=== PATIENT | male | born 1950 | race Caucasian/White ===

== ENCOUNTER 2019-09-05 23:07 | Inpatient (IN) | payer MEDICARE, MEDICAID ==
[~2019-09-05] VITALS: Ht 177.8 cm; Wt 71.7 kg
[~2019-09-05 23:07] MED LIST: METF-414 PO; PROT40 PO
[2019-09-05] MEDS ORDERED: MORPHINE SULFATE 4 MG/ML CPJ (NOT FOR IM USE) IV STA (23:56)
[2019-09-05] MEDS ORDERED: SODIUM CHLORIDE 0.9% 1,000 ML IV ONE (23:56)
[2019-09-05] MEDS ORDERED: IPRATROPIUM BROMIDE (0.02%) 0.5MG/2.5ML NEB HHN STA (23:56)
[2019-09-05] MEDS ORDERED: ALBUTEROL (0.083%) 2.5MG/3ML NEB HHN STA (23:56)
[2019-09-05] MEDS ORDERED: ONDANSETRON HCL 4MG/2ML INJ IV STA (23:56)
[2019-09-06 00:31] LABS: CHLORIDE 102 mEq/L (98-107); INR 1.1; PROTHROMBIN TIME 11.8 sec (9.6-11.0)
[2019-09-06 00:33] LABS: BASOPHILS % 0.2 % (0.0-2.0); HEMATOCRIT. 33.7 % (42.0-52.0); HEMOGLOBIN. 11.1 g/dL (14.0-18.0); LYMPHOCYTES % 10.4 % (20.0-50.0); MEAN CORPUSCULAR HEMOGLOBIN 28.5 pg (28.0-32.0); MEAN CORPUSCULAR VOLUME 86.4 fL (80.0-94.0); MEAN PLATELET VOLUME 7.9 fl (7.4-10.4); MONOCYTES % 3.8 % (2.0-8.0); NEUTROPHILS % 85.6 % (40.0-76.0); PLATELET 76 x1000/uL (130-400); RED CELL DISTRIBUTION WIDTH 19.9 % (11.6-14.6)
[2019-09-06 00:36] LABS: ETHANOL BLOOD < 10 mg/dL
[2019-09-06 01:45] LABS: BG BASE EXCESS -4.4 mmol/L (-2.0-2.0); BG CARBOXYHEMOGLOBIN 0.3 % (0.5-1.5); BG FRACTION INSPIRED OXYGEN 21; BG METHEMOGLOBIN 0.2 % (0.0-1.5); BG OXYHEMOGLOBIN 93.5 % (94.0-97.0); BG PCO2 39.8 mmHg (35.0-45.0); BG PH 7.341 (7.350-7.450); BG PO2 78.4 mmHg (75.0-100.0); BG SAMPLE SITE RIGHT RADIAL; BG TOTAL HEMOGLOBIN 11.3 g/dL (12.0-18.0); BG VENT MODE ROOM AIR
[2019-09-06] MEDS ORDERED: SODIUM CHLORIDE 0.9% 1,000 ML IV ONE (03:10)
[2019-09-06 03:31] LABS: CLARITY URINE CLOUDY (CLEAR); COLOR URINE YELLOW (YELLOW); KETONES URINE NEGATIVE (NEGATIVE); LEUKOCYTE ESTERASE URINE NEGATIVE (NEGATIVE); NITRITE URINE NEGATIVE (NEGATIVE); OCCULT BLOOD URINE NEGATIVE (NEGATIVE); PROTEIN URINE 2+ (NEGATIVE); SPECIFIC GRAVITY URINE 1.014 (1.005-1.030)
[2019-09-06 03:32] LABS: BASOPHILS % 0.7 % (0.0-2.0); HEMATOCRIT. 32.5 % (42.0-52.0); HEMOGLOBIN. 10.6 g/dL (14.0-18.0); LYMPHOCYTES % 8.6 % (20.0-50.0); MEAN CORPUSCULAR HEMOGLOBIN 28.2 pg (28.0-32.0); MEAN CORPUSCULAR VOLUME 86.7 fL (80.0-94.0); MEAN PLATELET VOLUME 7.9 fl (7.4-10.4); MONOCYTES % 3.4 % (2.0-8.0); NEUTROPHILS % 87.3 % (40.0-76.0); PLATELET 67 x1000/uL (130-400); RED BLOOD CELL COUNT 3.75 mill/uL (4.7-6.1); RED CELL DISTRIBUTION WIDTH 19.9 % (11.6-14.6)
[2019-09-06 03:46] LABS: METHADONE URINE SCREEN NEGATIVE (NEGATIVE); OPIATES URINE SCREEN PRESUMTIVE POSITIVE (NEGATIVE); PHENCYCLIDINE URINE SCREEN NEGATIVE (NEGATIVE)
[2019-09-06 03:48] LABS: *AMPHETAMINES SCREEN URINE NEGATIVE (NEGATIVE); *BARBITURATES SCREEN URINE NEGATIVE (NEGATIVE); *BENZODIAZEPINES SCREEN URINE NEGATIVE (NEGATIVE); *COCAINE SCREEN URINE NEGATIVE (NEGATIVE); CANNABINOID URINE SCREEN NEGATIVE (NEGATIVE)
[2019-09-06 04:35] LABS: BASOPHILS % 0.1 % (0.0-2.0); HEMATOCRIT. 30.6 % (42.0-52.0); HEMOGLOBIN. 9.9 g/dL (14.0-18.0); LYMPHOCYTES % 9.2 % (20.0-50.0); MEAN CORPUSCULAR HEMOGLOBIN 28.3 pg (28.0-32.0); MEAN PLATELET VOLUME 8.1 fl (7.4-10.4); MONOCYTES % 3.7 % (2.0-8.0); PLATELET 65 x1000/uL (130-400); RED BLOOD CELL COUNT 3.52 mill/uL (4.7-6.1); RED CELL DISTRIBUTION WIDTH 19.8 % (11.6-14.6)
[2019-09-06] MEDS ORDERED: ONDANSETRON HCL 4MG/2ML INJ IV PRN (10:00)
[2019-09-06] MEDS ORDERED: SODIUM CHLORIDE 0.9% 1,000 ML IV SCH (10:00)
[2019-09-06] MEDS ORDERED: ACETAMINOPHEN 325MG TABLET PO PRN (10:00)
[2019-09-06] MEDS ORDERED: DEXTROSE 50% WATER 50ML SYRINGE IV PRN (10:00)
[2019-09-06] MEDS ORDERED: IPRATROPIUM BROMIDE (0.02%) 0.5MG/2.5ML NEB HHN PRN (10:00)
[2019-09-06] MEDS ORDERED: CEFEPIME 1,000 MG in DEXTROSE 5% WATER 50 ML IV SCH ×2 (10:00→10:30)
[2019-09-06] MEDS ORDERED: SODIUM BICARBONATE 4% (2.4MEQ) 5ML VIAL IV ONE (11:12)
[2019-09-06] MEDS: INSULIN LISPRO 100 UNITS/ML SUBCUT SCH ×3 (13:20→21:14)
[2019-09-06] MEDS: BLOOD SUGAR DIAGNOSTIC STRIP TEST SCH ×3 (14:00→21:14)
[2019-09-06] MEDS: DEXT 5%/0.45% NACL 1000ML 1,000 ML IV SCH (16:45)
[2019-09-06 17:57] LABS: HEPATITIS B SURFACE ANTIGEN NEGATIVE
[2019-09-06 18:27] LABS: HEPATITIS A AB IGM NEGATIVE (NEGATIVE)
[2019-09-06] MEDS ORDERED: ALBUMIN HUMAN 12.5GM/50ML (25%) IV NR (19:15)
[2019-09-06 21:14] VITALS: BP 95/52
[2019-09-07] VITALS (11 sets, daily range): BP systolic 82–112; BP diastolic 48–69
[2019-09-07] MEDS: PROPRANOLOL HCL 10MG TABLET PO SCH ×2 (01:00→20:55)
[2019-09-07] MEDS ORDERED: SODIUM POLYSTYRENE SULFONATE 15 G/60 ML BOT PO NR (02:00)
[2019-09-07] MEDS: DEXT 5%/0.45% NACL 1000ML 1,000 ML IV SCH (02:17)
[2019-09-07] MEDS: ALBUMIN HUMAN 12.5GM/50ML (25%) IV SCH ×2 (02:28→09:36)
[2019-09-07] MEDS ORDERED: LACTULOSE 20G/30ML UDC PO SCH (06:00)
[2019-09-07] MEDS: BLOOD SUGAR DIAGNOSTIC STRIP TEST SCH ×3 (06:53→21:15)
[2019-09-07] MEDS: INSULIN LISPRO 100 UNITS/ML SUBCUT SCH ×3 (06:56→21:00)
[2019-09-07 07:38] LABS: BASOPHILS % 0.2 % (0.0-2.0); HEMATOCRIT. 28.4 % (42.0-52.0); HEMOGLOBIN. 9.2 g/dL (14.0-18.0); LYMPHOCYTES % 8.6 % (20.0-50.0); MEAN CORPUSCULAR HEMOGLOBIN 28.5 pg (28.0-32.0); MEAN PLATELET VOLUME 8.9 fl (7.4-10.4); MONOCYTES % 1.7 % (2.0-8.0); NEUTROPHILS % 89.5 % (40.0-76.0); RED BLOOD CELL COUNT 3.23 mill/uL (4.7-6.1); RED CELL DISTRIBUTION WIDTH 19.8 % (11.6-14.6)
[2019-09-07 07:50] LABS: PLATELET 49 x1000/uL (130-400)
[2019-09-07] MEDS ORDERED: MIDODRINE HCL 5MG TABLET PO SCH (09:00)
[2019-09-07] MEDS: PANTOPRAZOLE SODIUM 40 MG/VIAL IV SCH ×2 (09:34→21:17)
[2019-09-07] MEDS ORDERED: CEFEPIME 500 MG in DEXTROSE 5% WATER 50 ML IV SCH (12:00)
[2019-09-07] MEDS: LACTULOSE 20G/30ML UDC PO SCH (13:00)
[2019-09-07 13:13] LABS: PLATELET ESTIMATE MARKEDLY DECREASED
[2019-09-07] MEDS: MIDODRINE HCL 5MG TABLET PO SCH ×2 (15:27→17:00)
[2019-09-07] MEDS ORDERED: IPRATROPIUM/ALBUTEROL 0.5-3(2.5)MG/3ML NEB HHN PRN (15:45)
[2019-09-07] MEDS ORDERED: ALBUMIN HUMAN 25GM/100ML (25%) IV NR ×2 (16:30→22:30)
[2019-09-07 16:53] LABS: BG BASE EXCESS -10.7 mmol/L (-2.0-2.0); BG CARBOXYHEMOGLOBIN 0.3 % (0.5-1.5); BG DEOXYHEMOGLOBIN 10.6 % (0.0-5.0); BG FRACTION INSPIRED OXYGEN 40; BG HCO3 ACT 15.4 mmol/L (22.0-26.0); BG METHEMOGLOBIN 0.2 % (0.0-1.5); BG OXYGEN SATURATION 89.3 % (92.0-98.5); BG OXYHEMOGLOBIN 88.9 % (94.0-97.0); BG PCO2 34.8 mmHg (35.0-45.0); BG PH 7.264 (7.350-7.450); BG PO2 67.9 mmHg (75.0-100.0); BG SAMPLE SITE RIGHT RADIAL; BG VENT MODE NASAL CANNULA
[2019-09-07] MEDS: SODIUM BICARBONATE 8.4% 1 MEQ/ML 50ML SYR IV NR ×2 (18:46→18:52)
[2019-09-07] MEDS ORDERED: MORPHINE SULFATE 2 MG/ML CPJ (NOT FOR IM USE) IV PRN (20:15)
[2019-09-07] MEDS: IPRATROPIUM/ALBUTEROL 0.5-3(2.5)MG/3ML NEB HHN SCH ×2 (20:16→21:58)
[2019-09-08] VITALS (54 sets, daily range): BP systolic 88–121; BP diastolic 42–79
[2019-09-08] MEDS: IPRATROPIUM/ALBUTEROL 0.5-3(2.5)MG/3ML NEB HHN SCH ×6 (00:03→19:39)
[2019-09-08] MEDS: ALBUMIN HUMAN 25GM/100ML (25%) IV SCH ×3 (05:03→21:09)
[2019-09-08] MEDS: BLOOD SUGAR DIAGNOSTIC STRIP TEST SCH ×3 (06:14→18:06)
[2019-09-08 06:43] LABS: HEMATOCRIT. 26.8 % (42.0-52.0); HEMOGLOBIN. 8.7 g/dL (14.0-18.0); MEAN CORPUSCULAR HEMOGLOBIN 28.3 pg (28.0-32.0); MEAN PLATELET VOLUME 8.5 fl (7.4-10.4); RED BLOOD CELL COUNT 3.08 mill/uL (4.7-6.1); RED CELL DISTRIBUTION WIDTH 20.1 % (11.6-14.6)
[2019-09-08] MEDS: INSULIN LISPRO 100 UNITS/ML SUBCUT SCH ×2 (07:20→18:07)
[2019-09-08 08:01] LABS: PHOSPHORUS 5.4 mg/dL (2.5-4.9)
[2019-09-08 08:09] LABS: PLATELET 28 x1000/uL (130-400)
[2019-09-08 08:11] LABS: BG BASE EXCESS -3.7 mmol/L (-2.0-2.0); BG BILEVEL POS AIRWAY PRESSURE 15/5; BG CARBOXYHEMOGLOBIN 0.3 % (0.5-1.5); BG DEOXYHEMOGLOBIN 5.5 % (0.0-5.0); BG FRACTION INSPIRED OXYGEN 40; BG HCO3 ACT 21.8 mmol/L (22.0-26.0); BG METHEMOGLOBIN 0.1 % (0.0-1.5); BG OXYGEN SATURATION 94.5 % (92.0-98.5); BG OXYHEMOGLOBIN 94.1 % (94.0-97.0); BG PH 7.343 (7.350-7.450); BG PO2 75.3 mmHg (75.0-100.0); BG SAMPLE SITE RIGHT RADIAL; BG TOTAL HEMOGLOBIN 9.2 g/dL (12.0-18.0); BG VENT MODE MASK - BIPAP; BG VENT RATE 14 set
[2019-09-08] MEDS: MIDODRINE HCL 5MG TABLET PO SCH ×3 (08:17→17:00)
[2019-09-08] MEDS: PANTOPRAZOLE SODIUM 40 MG/VIAL IV SCH ×2 (08:17→21:09)
[2019-09-08] MEDS: LACTULOSE 20G/30ML UDC PO SCH (08:35)
[2019-09-08] MEDS: PROPRANOLOL HCL 10MG TABLET PO SCH ×2 (09:00→20:19)
[2019-09-08] MEDS: CEFEPIME 1,000 MG in DEXTROSE 5% WATER 50 ML IV SCH (09:34)
[2019-09-08] MEDS ORDERED: FUROSEMIDE 40MG/4ML VIAL IVP ONE (12:00)
[2019-09-08] MEDS ORDERED: NOREPINEPHRINE 4MG/250ML PMX 250 ML IV ONE (12:00)
[2019-09-08] MEDS ORDERED: LORAZEPAM 2MG/ML CPJ IV PRN (12:15)
[2019-09-08] MEDS ORDERED: NOREPINEPHRINE 4MG/250ML PMX 250 ML IV PRN (12:30)
[2019-09-08] MEDS ORDERED: VECURONIUM BROMIDE 10 MG/VIAL IV ONE (12:35)
[2019-09-08] MEDS ORDERED: ETOMIDATE 2MG/ML 10ML VIAL IV ONE (12:35)
[2019-09-08] MEDS ORDERED: SODIUM CHLORIDE 0.9% 10ML VIAL ONE (12:35)
[2019-09-08] MEDS: NOREPINEPHRINE 4 MG in DEXTROSE 5% WATER 250 ML IV PRN (12:50)
[2019-09-08] MEDS: FENTANYL CITRATE/PF 500 MCG in SODIUM CHLORIDE 0.9% 40 ML IV PRN (12:50)
[2019-09-08] MEDS: PHENYLEPHRINE 40 MG in DEXT 5% WATER 246 ML IV PRN ×2 (13:45→20:00)
[2019-09-08 13:54] LABS: PLATELET ESTIMATE MARKEDLY DECREASED
[2019-09-08 14:01] LABS: BG BASE EXCESS -8.1 mmol/L (-2.0-2.0); BG CARBOXYHEMOGLOBIN 0.3 % (0.5-1.5); BG DEOXYHEMOGLOBIN 0.9 % (0.0-5.0); BG FRACTION INSPIRED OXYGEN 100; BG HCO3 ACT 20.2 mmol/L (22.0-26.0); BG METHEMOGLOBIN 0.3 % (0.0-1.5); BG OXYGEN SATURATION 99.1 % (92.0-98.5); BG OXYHEMOGLOBIN 98.5 % (94.0-97.0); BG PCO2 54.4 mmHg (35.0-45.0); BG PH 7.187 (7.350-7.450); BG PO2 241.6 mmHg (75.0-100.0); BG SAMPLE SITE RIGHT RADIAL; BG TIDAL VOLUME(mL) 450 mL; BG TOTAL HEMOGLOBIN 10.8 g/dL (12.0-18.0); BG VENT MODE VENT - A/C; BG VENT RATE 16 set
[2019-09-08] MEDS ORDERED: LIDOCAINE HCL 1% 20ML VIAL (Pyxis) INJ ONE (14:04)
[2019-09-08] MEDS ORDERED: KCL 20MEQ/100ML PREMIX 100 ML IV SCH (15:00)
[2019-09-09] VITALS (99 sets, daily range): BP systolic 83–125; BP diastolic 42–66
[2019-09-09] MEDS: IPRATROPIUM/ALBUTEROL 0.5-3(2.5)MG/3ML NEB HHN SCH ×6 (00:42→21:03)
[2019-09-09] MEDS: PHENYLEPHRINE 80 MG in DEXT 5% WATER 492 ML IV PRN ×2 (01:42→09:41)
[2019-09-09 05:36] LABS: CHLORIDE 110 mEq/L (98-107)
[2019-09-09] MEDS: NOREPINEPHRINE 4 MG in DEXTROSE 5% WATER 250 ML IV PRN (05:36)
[2019-09-09] MEDS: ALBUMIN HUMAN 25GM/100ML (25%) IV SCH ×2 (05:36→12:53)
[2019-09-09 05:55] LABS: PHOSPHORUS 5.7 mg/dL (2.5-4.9)
[2019-09-09] MEDS: BLOOD SUGAR DIAGNOSTIC STRIP TEST SCH ×5 (06:00→23:47)
[2019-09-09] MEDS: INSULIN LISPRO 100 UNITS/ML SUBCUT SCH ×5 (06:00→23:47)
[2019-09-09 07:56] LABS: BG BASE EXCESS -7.8 mmol/L (-2.0-2.0); BG CARBOXYHEMOGLOBIN 0.3 % (0.5-1.5); BG DEOXYHEMOGLOBIN 3.1 % (0.0-5.0); BG HCO3 ACT 19.7 mmol/L (22.0-26.0); BG METHEMOGLOBIN 0.3 % (0.0-1.5); BG OXYGEN SATURATION 96.9 % (92.0-98.5); BG OXYHEMOGLOBIN 96.3 % (94.0-97.0); BG PCO2 49.3 mmHg (35.0-45.0); BG PH 7.219 (7.350-7.450); BG PO2 99.9 mmHg (75.0-100.0); BG SAMPLE SITE RIGHT RADIAL; BG TIDAL VOLUME(mL) 450 mL; BG TOTAL HEMOGLOBIN 9.8 g/dL (12.0-18.0); BG VENT MODE VENT - A/C; BG VENT RATE 20 set
[2019-09-09] MEDS: PANTOPRAZOLE SODIUM 40 MG/VIAL IV SCH ×2 (08:48→21:22)
[2019-09-09] MEDS: FUROSEMIDE 100MG/10ML VIAL IV SCH (08:49)
[2019-09-09] MEDS: LACTULOSE 20G/30ML UDC PO SCH ×2 (08:49→17:18)
[2019-09-09] MEDS: PROPRANOLOL HCL 10MG TABLET PO SCH ×3 (08:49→20:31)
[2019-09-09] MEDS: MIDODRINE HCL 5MG TABLET PO SCH ×3 (08:50→17:17)
[2019-09-09] MEDS ORDERED: FUROSEMIDE 40MG/4ML VIAL IVP SCH (09:00)
[2019-09-09] MEDS: FENTANYL CITRATE/PF 500 MCG in SODIUM CHLORIDE 0.9% 40 ML IV PRN (09:00)
[2019-09-09] MEDS: CITRIC ACID/SODIUM CITRATE SOLN 15ML UDC PO SCH ×3 (09:18→17:18)
[2019-09-09 09:48] LABS: HEMATOCRIT. 25.6 % (42.0-52.0); HEMOGLOBIN. 8.4 g/dL (14.0-18.0); MEAN CORPUSCULAR HEMOGLOBIN 28.8 pg (28.0-32.0); MEAN CORPUSCULAR VOLUME 87.6 fL (80.0-94.0); MEAN PLATELET VOLUME 8.8 fl (7.4-10.4); RED BLOOD CELL COUNT 2.92 mill/uL (4.7-6.1)
[2019-09-09 09:51] LABS: PLATELET 18 x1000/uL (130-400)
[2019-09-09 10:32] LABS: PLATELET ESTIMATE MARKEDLY DECREASED
[2019-09-09] MEDS ORDERED: VASOPRESSIN 10 UNIT in SODIUM CHLORIDE 0.9% 99.5 ML IV PRN (11:00)
[2019-09-09] MEDS: CEFEPIME 1,000 MG in DEXTROSE 5% WATER 50 ML IV SCH (11:19)
[2019-09-09] MEDS ORDERED: NOREPINEPHRINE 32 MG in DEXT 5% WATER 468 ML IV PRN (12:00)
[2019-09-09] MEDS: METRONIDAZOLE 500 MG PREMIX 100 ML IV SCH ×3 (12:43→23:50)
[2019-09-09 13:30] LABS: BG BASE EXCESS -6.6 mmol/L (-2.0-2.0); BG CARBOXYHEMOGLOBIN 0.3 % (0.5-1.5); BG DEOXYHEMOGLOBIN 1.7 % (0.0-5.0); BG FRACTION INSPIRED OXYGEN 70; BG HCO3 ACT 19.5 mmol/L (22.0-26.0); BG METHEMOGLOBIN 0.4 % (0.0-1.5); BG OXYGEN SATURATION 98.3 % (92.0-98.5); BG OXYHEMOGLOBIN 97.6 % (94.0-97.0); BG PCO2 41.6 mmHg (35.0-45.0); BG PH 7.289 (7.350-7.450); BG PO2 135.4 mmHg (75.0-100.0); BG SAMPLE SITE RIGHT RADIAL; BG TIDAL VOLUME(mL) 450 mL; BG TOTAL HEMOGLOBIN 8.5 g/dL (12.0-18.0); BG VENT MODE VENT - A/C; BG VENT RATE 24 set
[2019-09-09 17:12] LABS: FIBRINOGEN 292 mg/dL (200-400); INR 1.4; PARTIAL THROMBOPLASTIN TIME 68.8 sec (23.4-31.0); PROTHROMBIN TIME 14.7 sec (9.6-11.0)
[2019-09-09 17:38] LABS: D-DIMER > 35.20 mg/L FEU (<0.50)
[2019-09-10] VITALS (57 sets, daily range): BP systolic 44–127; BP diastolic 21–91
[2019-09-10] MEDS: PHENYLEPHRINE 80 MG in DEXT 5% WATER 492 ML IV PRN ×2 (00:42→08:44)
[2019-09-10 05:07] LABS: CA 19-9 6 U/mL (0-35)
[2019-09-10] MEDS: INSULIN LISPRO 100 UNITS/ML SUBCUT SCH (05:23)
[2019-09-10] MEDS: BLOOD SUGAR DIAGNOSTIC STRIP TEST SCH (05:23)
[2019-09-10] MEDS: METRONIDAZOLE 500 MG PREMIX 100 ML IV SCH (05:35)
[2019-09-10 05:43] LABS: HEMATOCRIT. 26.2 % (42.0-52.0); HEMOGLOBIN. 8.6 g/dL (14.0-18.0); MEAN PLATELET VOLUME 9.7 fl (7.4-10.4); RED BLOOD CELL COUNT 2.97 mill/uL (4.7-6.1); RED CELL DISTRIBUTION WIDTH 20.6 % (11.6-14.6)
[2019-09-10] MEDS: FENTANYL CITRATE/PF 500 MCG in SODIUM CHLORIDE 0.9% 40 ML IV PRN (06:12)
[2019-09-10 06:27] LABS: PLATELET 10 x1000/uL (130-400)
[2019-09-10 07:05] LABS: PHOSPHORUS 4.1 mg/dL (2.5-4.9)
[2019-09-10 07:10] LABS: PLATELET ESTIMATE MARKEDLY DECREASED
[2019-09-10] MEDS: CEFEPIME 1,000 MG in DEXTROSE 5% WATER 50 ML IV SCH (08:21)
[2019-09-10] MEDS: CITRIC ACID/SODIUM CITRATE SOLN 15ML UDC PO SCH (08:21)
[2019-09-10] MEDS: LACTULOSE 20G/30ML UDC PO SCH (08:21)
[2019-09-10] MEDS: FUROSEMIDE 100MG/10ML VIAL IV SCH (08:23)
[2019-09-10] MEDS: PANTOPRAZOLE SODIUM 40 MG/VIAL IV SCH (08:23)
[2019-09-10] MEDS: MIDODRINE HCL 5MG TABLET PO SCH (08:23)
[2019-09-10] MEDS: PROPRANOLOL HCL 10MG TABLET PO SCH (08:23)
[2019-09-10 08:42] LABS: BG BASE EXCESS -7.3 mmol/L (-2.0-2.0); BG CARBOXYHEMOGLOBIN 0.2 % (0.5-1.5); BG DEOXYHEMOGLOBIN 3.2 % (0.0-5.0); BG FRACTION INSPIRED OXYGEN 50; BG HCO3 ACT 18.2 mmol/L (22.0-26.0); BG METHEMOGLOBIN 0.2 % (0.0-1.5); BG OXYGEN SATURATION 96.8 % (92.0-98.5); BG OXYHEMOGLOBIN 96.4 % (94.0-97.0); BG PO2 99.3 mmHg (75.0-100.0); BG SAMPLE SITE RIGHT RADIAL; BG TIDAL VOLUME(mL) 450 mL; BG TOTAL HEMOGLOBIN 11.7 g/dL (12.0-18.0); BG VENT MODE VENT - A/C; BG VENT RATE 26 set
[2019-09-10] MEDS: IPRATROPIUM/ALBUTEROL 0.5-3(2.5)MG/3ML NEB HHN SCH (09:27)
[2019-09-10] MEDS ORDERED: MORPHINE SULFATE 250 MG in DEXT 5% WATER 240 ML IV PRN (12:00)
== END 2019-09-10 15:00 | disposition expired | DRG 871 ==
LOC: ER 23:07 → 7WST 09-06 05:30 → ENRESERV 09-06 19:39 → 3WST 09-07 19:52 → MICUSO 09-08 12:10
PROVIDERS: ADMIT Internal Medicine; ATTEND Internal Medicine
PROC: 0W9G3ZZ Drainage of Peritoneal Cavity, Percutaneous Approach (ICD-10-PCS; 2019-09-06)
PROC: 5A1935Z Respiratory Ventilation, Less than 24 Consecutive Hours (ICD-10-PCS; 2019-09-07)
PROC: 5A1945Z Respiratory Ventilation, 24-96 Consecutive Hours (ICD-10-PCS; principal; 2019-09-08)
PROC: 02HV33Z Insertion of Infusion Device into Superior Vena Cava, Percutaneous Approach (ICD-10-PCS; 2019-09-08)
PROC: B548ZZA Ultrasonography of Superior Vena Cava, Guidance (ICD-10-PCS; 2019-09-08)
PROC: 5A1935Z Respiratory Ventilation, Less than 24 Consecutive Hours (ICD-10-PCS; 2019-09-08)
PROC: 0BH17EZ Insertion of Endotracheal Airway into Trachea, Via Natural or Artificial Opening (ICD-10-PCS; 2019-09-08)
PROC: 30233R1 Transfusion of Nonautologous Platelets into Peripheral Vein, Percutaneous Approach (ICD-10-PCS; 2019-09-09)
DX: A41.9 Sepsis, unspecified organism (principal); E43 Unspecified severe protein-calorie malnutrition; J18.9 Pneumonia, unspecified organism; K76.7 Hepatorenal syndrome; J96.01 Acute respiratory failure with hypoxia; N17.0 Acute kidney failure with tubular necrosis; E87.2 Acidosis; J81.1 Chronic pulmonary edema; K76.6 Portal hypertension; J90 Pleural effusion, not elsewhere classified; D61.818 Other pancytopenia; R18.8 Other ascites; R64 Cachexia; D68.9 Coagulation defect, unspecified; J98.11 Atelectasis; C78.6 Secondary malignant neoplasm of retroperitoneum and peritoneum; I85.10 Secondary esophageal varices without bleeding; E87.5 Hyperkalemia; I86.4 Gastric varices; E11.649 Type 2 diabetes mellitus with hypoglycemia without coma; E86.0 Dehydration; E11.22 Type 2 diabetes mellitus with diabetic chronic kidney disease; I12.9 Hypertensive chronic kidney disease with stage 1 through stage 4 chronic kidney disease, or unspecified chronic kidney disease; K74.60 Unspecified cirrhosis of liver; R59.0 Localized enlarged lymph nodes; E87.70 Fluid overload, unspecified; I27.20 Pulmonary hypertension, unspecified; Z51.5 Encounter for palliative care; I44.7 Left bundle-branch block, unspecified; K31.89 Other diseases of stomach and duodenum; N18.9 Chronic kidney disease, unspecified; R62.7 Adult failure to thrive; Z79.899 Other long term (current) drug therapy; Z82.49 Family history of ischemic heart disease and other diseases of the circulatory system; Z83.3 Family history of diabetes mellitus; Z68.22 Body mass index [BMI] 22.0-22.9, adult
CPT/HCPCS: 31500; 36415; 36600; 49083; 71045; 74176; 76937; 80048; 80053; 80076; 80305; 80320; 81003; 82105; 82140; 82375; 82378; 82805; 82962; 83605; 83735; 83880; 84100; 84134; 84145; 84484; 85025; 85362; 85379; 85384; 86301; 86705; 86709; 86803; 86850; 86900; 86945; 87340; 88108; 88312; 92610; 93005; 93306; 93970; 94003; 94640; 94660; 97162; 99285; C1725; C9113; J0692; J1815; J1940; J2270; J2274; J2370; J2405; J3010; J3480; J3490; J7030; J7060; P9034; P9047; G0480